=== PATIENT | male | born 1990 | race Caucasian/White ===

== ENCOUNTER 2017-06-29 19:17 | Emergency (ER) | payer OTHER ==
[2017-06-29] MEDS: LIDOCAINE 1% MDV 20ML VIAL SC (20:15)
== END 2017-06-29 21:06 | disposition home or self-care (01) ==
LOC: M ED 19:17
DX: S01.511A Laceration without foreign body of lip, initial encounter (principal); W26.8XXA Contact with other sharp object(s), not elsewhere classified, initial encounter; Y92.098 Other place in other non-institutional residence as the place of occurrence of the external cause; Y93.89 Activity, other specified; Y99.8 Other external cause status; Z88.2 Allergy status to sulfonamides
CPT/HCPCS: 12011